=== PATIENT | female | born 1970 | race Caucasian/White ===

== ENCOUNTER 2017-01-14 17:40 | Emergency (ER) | payer MEDICARE ==
[2016-04-18 13:36] VITALS: BMI 40.0
[~2017-01-14 17:40] MED LIST: AMITRIPTYLINE100 MG PO; ATARAX 25 MG TA25 MG PO; CATAPRES0.1 MG PO; DIOVAN HCT 160/1 TA1 PO; FLAGYL500 MG PO; FOLIC ACID1 MG PO; HYDROCODONE-APA1 TAB PO; IBUPROFEN600 MG PO; LACTINEX C1 TAB.CHEW PO; LEVAQUIN500 MG PO; LIPITOR10 MG PO; METHOTREXATE2.5 MG PO; METOPROLOL TART50 MG PO; NEURONTIN 300300 MG PO; NORCO 10/325 TA1 TA1 PO; PERCOCET 5-3251 TAB PO; PLAVIX75 MG PO; PROAIR HFA8.5 GM INH; SYNTHROID50 MCG PO; XANAX1 MG PO; ZESTRIL20 MG PO; ZOFRAN4 MG PO
[2017-01-14 18:48] LABS: BASOPHILS 0.2 % (0.0-2.0); EOSINOPHILS 2.2 % (0-7); HEMATOCRIT 46.3 % (36.0-48.0); HEMOGLOBIN 15.2 g/dL (12-16); IMMATURE GRANULOCYTES 0.3 % (0-5); LYMPHOCYTES 32.4 % (15-50); MCH 28.2 pg (26.0-34.0); MCHC 32.8 g/dL (31.0-37.0); MCV 85.9 fL (80.0-100.0); MEAN PLATELET VOLUME 12.1 fL (7.4-10.4); MONOCYTES 6.9 % (2-11); PLATELET COUNT 207 10x3/uL (130-400); RBC 5.39 10x6/uL (4.00-5.40); RDW 14.8 % (11.5-14.5); WBC 9.2 10x3/uL (4.8-10.8)
[2017-01-14 18:56] LABS: APTT 26.8 SECONDS (22.8-39.4); INR 0.91 (0.85-1.17); PROTIME 12.1 SECONDS (11.6-15.0)
[2017-01-14 19:04] LABS: ALBUMIN 3.7 g/dL (3.4-5.0); ANION GAP 12.2 mmol/L (8-16); BILIRUBIN - TOTAL 0.23 mg/dL (0.2-1.3); CALCIUM 9.5 mg/dL (8.5-10.1); CARBON DIOXIDE 30.6 mmol/L (21.0-32.0); CREATININE - SERUM 0.9 mg/dL (0.6-1.3); POTASSIUM - SERUM 3.8 mmol/L (3.5-5.1)
[2017-01-14 19:59] LABS: APPEARANCE CLEAR (CLEAR); BILIRUBIN NEGATIVE (NEGATIVE); COLOR STRAW (YELLOW); GLUCOSE NEGATIVE (NEGATIVE); KETONE NEGATIVE (NEGATIVE); LEUKOCYTE ESTERASE TRACE (NEGATIVE); NITRITE NEGATIVE (NEGATIVE); PROTEIN NEGATIVE (NEGATIVE); RED CELLS - URINE OCC /hpf (0-5); SPECIFIC GRAVITY 1.015 (1.005-1.020); UROBILINOGEN NORMAL (NORMAL)
[2017-01-14 20:00] LABS: BACTERIA MODERATE /hpf (NONE SEEN); EPITHELIAL CELLS 0-5 /hpf (0-5)
[2017-01-14 20:01] LABS: UDS - AMPHET NEGATIVE QUAL (NEGATIVE); UDS - BARB NEGATIVE QUAL (NEGATIVE); UDS - BENZO POSITIVE QUAL (NEGATIVE); UDS - COCAINE NEGATIVE QUAL (NEGATIVE); UDS - METH NEGATIVE QUAL (NEGATIVE); UDS - OPIATE NEGATIVE QUAL (NEGATIVE); UDS - PCP NEGATIVE QUAL (NEGATIVE); UDS - THC NEGATIVE QUAL (NEGATIVE)
== END 2017-01-14 21:10 | disposition home or self-care (01) ==
LOC: D.ER 17:40
PROVIDERS: Emergency Medicine; Family Medicine
DX: N39.0 Urinary tract infection, site not specified (principal); J40 Bronchitis, not specified as acute or chronic; Z86.73 Personal history of transient ischemic attack (TIA), and cerebral infarction without residual deficits; I10 Essential (primary) hypertension; E87.6 Hypokalemia

== ENCOUNTER 2017-05-23 05:50 | Day surgery (SDC) | payer MEDICARE ==
[2017-05-22 13:55] LABS: HEMATOCRIT 41.6 % (36.0-48.0); HEMOGLOBIN 13.8 g/dL (12-16); MCH 27.7 pg (26.0-34.0); MCHC 33.2 g/dL (31.0-37.0); MCV 83.5 fL (80.0-100.0); MEAN PLATELET VOLUME 11.2 fL (7.4-10.4); RBC 4.98 10x6/uL (4.00-5.40); RDW 15.5 % (11.5-14.5); WBC 9.7 10x3/uL (4.8-10.8)
[~2017-05-23] VITALS: Ht 144.8 cm; Wt 93.9 kg
--- NOTE | ~2017-05-23 | OP ---
PATIENT NAME: HOLDEN NAVA MEDICAL RECORD: [id number] :74 LOCATION:D.[facility] ADMISSION DATE: SURGEON: DIYA GASCA MD OPERATION DATE: 05/23/17 DATE OF OPERATION: 05/23/2017 PREOPERATIVE DIAGNOSES: Large disc herniation L5-S1 right with right L5 and S1 radiculopathy. POSTOPERATIVE DIAGNOSES: Large disc herniation L5-S1 right with right L5 and S1 radiculopathy. PROCEDURES: Lumbar laminotomy, medial facetectomy and foraminotomy with discectomy L5-S1 right with METRx retractor. SURGEON: Diya Gasca MD. PLACE OF SERVICE: [facility]. INDICATIONS: Ms. Nava has 10/10 low back pain radiating to her right lower extremity and at L5 and S1 distributions, unresponsive to conservative treatment and unable to perform ADLs with complaint of weakness in her right lower extremity. Therefore, she was taken to the operating room. DESCRIPTION AND TECHNIQUE: After induction of general endotracheal anesthesia, the patient was rolled prone on a Mark frame. Lumbar spine was prepped and draped in usual sterile fashion. Fluoroscopic x-ray and spinal needle localized to L5-S1 interspace on the right side. A series of dilators was used to advance a METRx retractor to the L5-S1 interspace on the right side. The level was confirmed with fluoroscopic x-ray. A [employer] Joe drill and microscope were used to perform a laminotomy, medial facetectomy and foraminotomy at L5-S1 on the right. Hypertrophied ligamentum flavum was removed with Cloward rongeurs. There was an obvious disc herniation at L5-S1 within the axilla of the right S1 nerve root. This was removed with pituitary rongeurs. The spinal canal was ____ with a nerve hook noted no other fragments found. Meticulous hemostasis was maintained throughout the wound. Wound was irrigated with copious amounts of lukewarm saline irrigant solution. Additional disc material was removed from the disc space. Meticulous hemostasis was maintained throughout the wound. Wound was irrigated again with lukewarm saline irrigant solution. The fascia was closed with 2-0 Vicryl suture. The subdermal layer was closed with 3-0 Vicryl suture. The skin was closed with scott. A sterile dressing was applied to the wound. The patient was awakened in good condition and taken to recovery. All counts were reported as correct. Estimated blood loss was minimal. TRANSINT:[id number] Voice Confirmation ID: [id number] DOCUMENT ID: [id number] OPERATIVE REPORT [id number] HOLDEN NAVA JOHN MD CC: [id number] DICTATION DATE: 05/23/171908 MIXING ENGINEER: 05/25/17 0151 [facility] 05/23/17 [address] [place] [address]
[~2017-05-23 05:50] MED LIST changes: +DESERYL100 MG PO; +LEVOTHYROXINE50 MCG PO; +LYRICA75 MG PO; +PERCOCET 10/3251 TA1 PO; +PHENERGAN25 M1 PO
[2017-05-23 06:21] VITALS: BP 143/81; Ht 144.8 cm; Wt 93.9 kg
--- NOTE | 2017-05-23 15:07 | NUR ---
1405 DRESSED, AWAKE & ALERT. REQUESTS DISCAHRGE. RANKS PAIN 12/16. GIVEN DISCHARGE INFORMATION INCLUDING: RX: PERCOET 10/325MG, MED REC, [facility] OPS D/C INSTRUCTIONS, RTC APPT., LUMBAR SURGERY DISCAHRGE INSTRUCTIONS, & COMPUTER D/C INSTRUCTIONS FOR LAMINECTOMY. PT VOICED UNDERSTANDING. TO PRIVATE CAR PER WHEELCHAIR BY VOLUNTEER. HOME WITH , URI MATA. Aijt MAURO R.N.
== END 2017-05-23 14:05 | disposition home or self-care (01) ==
LOC: D.OPS 05:50 → D.PAN 07:30 → D.OPS 07:30
PROVIDERS: Anesthesiology
DX: M51.17 Intervertebral disc disorders with radiculopathy, lumbosacral region (principal); Z01.812 Encounter for preprocedural laboratory examination

== ENCOUNTER 2017-08-30 21:12 | Emergency (ER) | payer MEDICARE ==
[2017-05-23 06:21] VITALS: BMI 44.9
[2017-08-30 21:54] LABS: BASOPHILS 0.2 % (0-2); EOSINOPHILS 2.8 % (0-7); HEMATOCRIT 41.5 % (36.0-48.0); HEMOGLOBIN 13.4 g/dL (12-16); IMMATURE GRANULOCYTES 0.2 % (0-5); LYMPHOCYTES 28.9 % (15-50); MCH 28.4 pg (26.0-34.0); MCHC 32.3 g/dL (31.0-37.0); MCV 87.9 fL (80.0-100.0); MEAN PLATELET VOLUME 12.2 fL (7.4-10.4); MONOCYTES 10.2 % (2-11); NEUTROPHILS 57.7 % (40-80); PLATELET COUNT 200 10x3/uL (130-400); RBC 4.72 10x6/uL (4.00-5.40); WBC 8.7 10x3/uL (4.8-10.8)
[2017-08-30 22:14] LABS: ANION GAP 8.4 mmol/L (8-16); CALCIUM 8.7 mg/dL (8.5-10.1); CARBON DIOXIDE 31.2 mmol/L (21.0-32.0); CREATININE - SERUM 0.9 mg/dL (0.6-1.3); POTASSIUM - SERUM 3.6 mmol/L (3.5-5.1)
[2017-08-30 22:16] LABS: TROPONIN-I 0.064 ng/mL (0.000-0.060)
== END 2017-08-30 23:24 | disposition home or self-care (01) ==
LOC: D.ER 21:12
PROVIDERS: Emergency Medicine; Nurse Practitioner Acute Care
DX: J18.9 Pneumonia, unspecified organism (principal); F17.200 Nicotine dependence, unspecified, uncomplicated; Z86.73 Personal history of transient ischemic attack (TIA), and cerebral infarction without residual deficits

== ENCOUNTER 2017-10-01 21:03 | Emergency (ER) | payer MEDICARE ==
[2017-05-23 06:21] VITALS: BMI 44.9
[2017-10-01 21:47] LABS: APPEARANCE CLEAR (CLEAR); BILIRUBIN NEGATIVE (NEGATIVE); COLOR YELLOW (YELLOW); GLUCOSE NEGATIVE (NEGATIVE); KETONE NEGATIVE (NEGATIVE); NITRITE NEGATIVE (NEGATIVE); PROTEIN NEGATIVE (NEGATIVE); SPECIFIC GRAVITY 1.015 (1.005-1.020); UROBILINOGEN NORMAL (NORMAL)
[2017-10-01 21:56] LABS: BASOPHILS 0.3 % (0-2); HEMATOCRIT 41.3 % (36.0-48.0); HEMOGLOBIN 13.4 g/dL (12-16); IMMATURE GRANULOCYTES 0.3 % (0-5); MCH 27.9 pg (26.0-34.0); MCHC 32.4 g/dL (31.0-37.0); MCV 85.9 fL (80.0-100.0); MEAN PLATELET VOLUME 12.2 fL (7.4-10.4); NEUTROPHILS 63.4 % (40-80); PLATELET COUNT 193 10x3/uL (130-400); RBC 4.81 10x6/uL (4.00-5.40); RDW 13.7 % (11.5-14.5)
[2017-10-01 22:12] LABS: UDS - AMPHET NEGATIVE QUAL (NEGATIVE); UDS - BARB NEGATIVE QUAL (NEGATIVE); UDS - BENZO POSITIVE QUAL (NEGATIVE); UDS - COCAINE NEGATIVE QUAL (NEGATIVE); UDS - OPIATE NEGATIVE QUAL (NEGATIVE); UDS - PCP NEGATIVE QUAL (NEGATIVE); UDS - THC NEGATIVE QUAL (NEGATIVE)
[2017-10-01 22:13] LABS: ANION GAP 15.1 mmol/L (8-16); BILIRUBIN - TOTAL 0.06 mg/dL (0.2-1.3); CALCIUM 8.9 mg/dL (8.5-10.1); CARBON DIOXIDE 27.5 mmol/L (21.0-32.0); POTASSIUM - SERUM 3.6 mmol/L (3.5-5.1)
== END 2017-10-02 00:40 | disposition home or self-care (01) ==
LOC: D.ER 21:03
PROVIDERS: Family Medicine
DX: R10.12 Left upper quadrant pain (principal); I10 Essential (primary) hypertension; Z86.73 Personal history of transient ischemic attack (TIA), and cerebral infarction without residual deficits

== ENCOUNTER 2018-01-09 10:31 | Emergency (ER) | payer MEDICARE ==
[2017-05-23 06:21] VITALS: BMI 44.9
== END 2018-01-09 13:23 | disposition home or self-care (01) ==
LOC: D.ER 10:31
DX: R13.10 Dysphagia, unspecified (principal); I10 Essential (primary) hypertension; F17.200 Nicotine dependence, unspecified, uncomplicated

== ENCOUNTER 2018-01-24 11:32 | Emergency (ER) | payer MEDICARE ==
[2017-05-23 06:21] VITALS: BMI 44.9
[2018-01-24 17:04] LABS: BASOPHILS 0.2 % (0-2); EOSINOPHILS 2.5 % (0-7); HEMATOCRIT 42.2 % (36.0-48.0); HEMOGLOBIN 13.8 g/dL (12-16); IMMATURE GRANULOCYTES 0.1 % (0-5); LYMPHOCYTES 34.3 % (15-50); MCH 27.7 pg (26.0-34.0); MCHC 32.7 g/dL (31.0-37.0); MCV 84.6 fL (80.0-100.0); MEAN PLATELET VOLUME 11.8 fL (7.4-10.4); MONOCYTES 5.9 % (2-11); PLATELET COUNT 204 10x3/uL (130-400); RBC 4.99 10x6/uL (4.00-5.40); RDW 15.9 % (11.5-14.5); WBC 9.2 10x3/uL (4.8-10.8)
[2018-01-24 17:20] LABS: ALBUMIN 3.3 g/dL (3.4-5.0); ALKALINE PHOSPHATASE 106 U/L (46-116); ALT (SGPT) 24 U/L (10-68); BILIRUBIN - TOTAL 0.31 mg/dL (0.2-1.3); CALC OSMOLALITY 283 mosm/kg (275-300); CALCIUM 8.7 mg/dL (8.5-10.1); CARBON DIOXIDE 26.4 mmol/L (21.0-32.0); CHLORIDE - SERUM 106 mmol/L (98-107); CREATININE - SERUM 0.8 mg/dL (0.6-1.3); POTASSIUM - SERUM 3.6 mmol/L (3.5-5.1); PROTEIN - SERUM 7.2 g/dL (6.4-8.2); SODIUM 142 mmol/L (136-145); UREA NITROGEN 14 mg/dL (7-18); eGFR NON AFRICAN AMERICAN 82 mL/min (90-120)
[2018-01-24 17:21] LABS: GLUCOSE 92 mg/dL (74-106)
[2018-01-24 18:35] LABS: APPEARANCE CLEAR (CLEAR); COLOR YELLOW (YELLOW)
[2018-01-24 18:36] LABS: BILIRUBIN NEGATIVE (NEGATIVE); GLUCOSE NEGATIVE (NEGATIVE); KETONE SMALL mg/dL (NEGATIVE); NITRITE NEGATIVE (NEGATIVE); PROTEIN NEGATIVE (NEGATIVE); UROBILINOGEN NORMAL (NORMAL)
== END 2018-01-24 19:30 | disposition home or self-care (01) ==
LOC: D.ER 11:32
PROVIDERS: Physician Assistant Medical
DX: I88.9 Nonspecific lymphadenitis, unspecified (principal); I10 Essential (primary) hypertension; F17.200 Nicotine dependence, unspecified, uncomplicated

== ENCOUNTER 2018-03-26 15:48 | Emergency (ER) | payer MEDICARE ==
[2017-05-23 06:21] VITALS: BMI 44.9
== END 2018-03-26 18:10 | disposition home or self-care (01) ==
LOC: D.ER 15:48
DX: S80.02XA Contusion of left knee, initial encounter (principal); S80.01XA Contusion of right knee, initial encounter; W19.XXXA Unspecified fall, initial encounter; Y93.89 Activity, other specified; Y92.481 Parking lot as the place of occurrence of the external cause; M79.631 Pain in right forearm; M25.531 Pain in right wrist; I10 Essential (primary) hypertension

== ENCOUNTER → 2018-06-08 09:28 | Outpatient (CLI) | payer MEDICARE ==
[2017-05-23 06:21] VITALS: BMI 44.9
[~2018-06-08 09:28] MED LIST changes: +NORVASC5 MG PO; +PROTONIX40 MG PO
== END | disposition home or self-care (01) ==
LOC: D.CT 06-06 13:00
DX: R10.84 Generalized abdominal pain (principal)

== ENCOUNTER 2018-06-11 21:40 | Emergency (ER) | payer MEDICARE, MEDICAID ==
[~2018-06-11] VITALS: Ht 144.8 cm; Wt 84.4 kg
[~2018-06-11 21:40] MED LIST changes: -NORVASC5 MG PO; -PROTONIX40 MG PO
[2018-06-11 22:05] VITALS: Ht 144.8 cm; Wt 84.4 kg
[2018-06-11 22:40] LABS: BASOPHILS 0.2 % (0-2); HEMATOCRIT 43.9 % (36.0-48.0); HEMOGLOBIN 14.8 g/dL (12-16); IMMATURE GRANULOCYTES 0.2 % (0-5); LYMPHOCYTES 38.7 % (15-50); MCHC 33.7 g/dL (31.0-37.0); MEAN PLATELET VOLUME 11.5 fL (7.4-10.4); MONOCYTES 7.7 % (2-11); NEUTROPHILS 51.2 % (40-80); PLATELET COUNT 217 10x3/uL (130-400); RBC 5.29 10x6/uL (4.00-5.40); RDW 14.5 % (11.5-14.5); WBC 10.8 10x3/uL (4.8-10.8)
[2018-06-11 22:49] LABS: APPEARANCE CLEAR (CLEAR); BILIRUBIN NEGATIVE (NEGATIVE); COLOR YELLOW (YELLOW); GLUCOSE NEGATIVE (NEGATIVE); KETONE NEGATIVE (NEGATIVE); NITRITE NEGATIVE (NEGATIVE); PROTEIN NEGATIVE (NEGATIVE); UROBILINOGEN NORMAL (NORMAL)
[2018-06-11 23:09] LABS: ALBUMIN 3.4 g/dL (3.4-5.0); ANION GAP 12.2 mmol/L (8-16); BILIRUBIN - TOTAL 0.09 mg/dL (0.2-1.3); CARBON DIOXIDE 29.5 mmol/L (21.0-32.0); POTASSIUM - SERUM 3.7 mmol/L (3.5-5.1); PROTEIN - SERUM 7.6 g/dL (6.4-8.2)
[2018-06-12 00:08] LABS: UDS - AMPHET NEGATIVE QUAL (NEGATIVE); UDS - BARB NEGATIVE QUAL (NEGATIVE); UDS - BENZO NEGATIVE QUAL (NEGATIVE); UDS - COCAINE NEGATIVE QUAL (NEGATIVE); UDS - OPIATE NEGATIVE QUAL (NEGATIVE); UDS - PCP NEGATIVE QUAL (NEGATIVE); UDS - THC NEGATIVE QUAL (NEGATIVE)
[2018-06-12] MEDS ORDERED: PROTONIX40 MG PO (01:29)
[2018-06-12] MEDS ORDERED: NORVASC5 MG PO (01:29)
[2018-06-12 01:56] VITALS: BP 167/89
== END 2018-06-12 01:53 | disposition home or self-care (01) ==
LOC: D.ER 21:40
PROVIDERS: Family Medicine
DX: I10 Essential (primary) hypertension (principal); R10.9 Unspecified abdominal pain; K20.9 Esophagitis, unspecified; R11.2 Nausea with vomiting, unspecified; Z86.73 Personal history of transient ischemic attack (TIA), and cerebral infarction without residual deficits; F17.200 Nicotine dependence, unspecified, uncomplicated

== ENCOUNTER → 2018-11-28 | Emergency (ER) | payer MEDICARE, MEDICAID ==
[~2018-11-28] VITALS: Ht 144.8 cm; Wt 90.9 kg
[~2018-11-28] MED LIST changes: +AUGMENTIN 875-11 TAB PO; +FLORASTOR250 MG PO; +NORVASC5 MG PO; +PROTONIX40 MG PO
[2018-11-28 23:31] VITALS: Ht 144.8 cm; Wt 90.9 kg
[2018-11-29 00:02] LABS: BASOPHILS 0.4 % (0-2); EOSINOPHILS 2.3 % (0-7); HEMATOCRIT 42.2 % (36.0-48.0); IMMATURE GRANULOCYTES 0.8 % (0-5); LYMPHOCYTES 30.6 % (15-50); MCH 28.1 pg (26.0-34.0); MCHC 33.2 g/dL (31.0-37.0); MCV 84.7 fL (80.0-100.0); MEAN PLATELET VOLUME 11.3 fL (7.4-10.4); MONOCYTES 6.5 % (2-11); NEUTROPHILS 59.4 % (40-80); PLATELET COUNT 238 10x3/uL (130-400); RBC 4.98 10x6/uL (4.00-5.40); RDW 14.7 % (11.5-14.5); WBC 11.9 10x3/uL (4.8-10.8)
[2018-11-29 00:03] LABS: ANION GAP 12.9 mmol/L (8-16); BILIRUBIN - TOTAL 0.11 mg/dL (0.2-1.3); CALCIUM 8.6 mg/dL (8.5-10.1); CARBON DIOXIDE 30.5 mmol/L (21.0-32.0); POTASSIUM - SERUM 3.4 mmol/L (3.5-5.1); PROTEIN - SERUM 7.6 g/dL (6.4-8.2)
[2018-11-29 01:20] VITALS: BP 142/75
== END | disposition home or self-care (01) ==
LOC: D.ER 23:20
PROVIDERS: Family Medicine
DX: S61.452A Open bite of left hand, initial encounter (principal); Y04.1XXA Assault by human bite, initial encounter; Y93.89 Activity, other specified; Y92.019 Unspecified place in single-family (private) house as the place of occurrence of the external cause; Z86.73 Personal history of transient ischemic attack (TIA), and cerebral infarction without residual deficits; I10 Essential (primary) hypertension; F17.200 Nicotine dependence, unspecified, uncomplicated

== ENCOUNTER 2019-01-09 01:39 | Emergency (ER) | payer MEDICARE, MEDICAID ==
[~2019-01-09] VITALS: Ht 144.8 cm; Wt 122.5 kg
[2019-01-09 01:54] VITALS: Ht 144.8 cm; Wt 122.5 kg
[2019-01-09] MEDS ORDERED: LEVOTHYROXINE50 MCG PO (01:56)
[2019-01-09 02:41] LABS: BASOPHILS 0.2 % (0-2); HEMATOCRIT 41.9 % (36.0-48.0); HEMOGLOBIN 13.7 g/dL (12-16); IMMATURE GRANULOCYTES 0.2 % (0-5); LYMPHOCYTES 33.1 % (15-50); MCH 27.6 pg (26.0-34.0); MCHC 32.7 g/dL (31.0-37.0); MCV 84.5 fL (80.0-100.0); MEAN PLATELET VOLUME 11.7 fL (7.4-10.4); MONOCYTES 7.7 % (2-11); NEUTROPHILS 56.8 % (40-80); PLATELET COUNT 244 10x3/uL (130-400); RBC 4.96 10x6/uL (4.00-5.40); RDW 15.1 % (11.5-14.5); WBC 9.6 10x3/uL (4.8-10.8)
[2019-01-09 02:57] LABS: ALBUMIN 3.2 g/dL (3.4-5.0); BILIRUBIN - TOTAL 0.11 mg/dL (0.2-1.3); CALCIUM 8.4 mg/dL (8.5-10.1); CARBON DIOXIDE 25.5 mmol/L (21.0-32.0); POTASSIUM - SERUM 3.5 mmol/L (3.5-5.1); PROTEIN - SERUM 7.4 g/dL (6.4-8.2)
[2019-01-09] MEDS ORDERED: DICLOFENAC SODI50 MG PO (03:04)
[2019-01-09 03:14] LABS: C-REACTIVE PROTEIN 1.9 mg/dL (0.0-0.9)
[2019-01-09 03:15] LABS: TROPONIN-I 0.077 ng/mL (0.000-0.060)
[2019-01-09 03:38] VITALS: BP 205/112
[2019-01-10] MEDS ORDERED: ASPIRIN325 MG PO (14:32)
[2019-01-10] MEDS ORDERED: NORVASC5 MG PO (14:34)
[2019-01-10] MEDS ORDERED: ISOSORBIDE MONO30 M1 PO (14:46)
== END 2019-01-09 03:41 | disposition left against medical advice (07) ==
LOC: D.ER 01:39
PROVIDERS: Family Medicine
DX: M79.89 Other specified soft tissue disorders (principal); I10 Essential (primary) hypertension; R94.8 Abnormal results of function studies of other organs and systems; I69.359 Hemiplegia and hemiparesis following cerebral infarction affecting unspecified side; J45.909 Unspecified asthma, uncomplicated; F41.8 Other specified anxiety disorders

== ENCOUNTER 2019-01-09 12:47 | Outpatient (CLI) | payer MEDICARE, MEDICAID ==
[~2019-01-09] VITALS: Ht 144.8 cm; Wt 91.8 kg
--- NOTE | ~2019-01-09 | HEMODYNAMI ---
PATIENT:HOLDEN MATA MEDICAL RECORD: [id number] : 74 LOCATION:[facility] D.2118 ADMISSION DATE: 01/09/19 Generatedon:01/10/201912:39 Patient name: HOLDEN MATA Patient #: [id number] SSN: : 1970 Date of study: 01/10/2019 Page: Of Hemodynamic Procedure Report Patient Data Patient Demographics Procedure consent was obtained First Name: HOLDEN Gender: Female Last Name: ESPERANZA : 1970 Middle Initial: A Age: 48 year(s) Patient #: [id number] Race: Unknown Additional ID: [id number] Contact details Address: [address] [place] [address] ROAD State: [place] City: [place] Zip code: [address] Past Medical History Allergies Allergen Reaction Date Comments Reported Other allergy 01/10/2019 keflex, haldol, stadol Sulfa drugs 01/10/2019 Admission Admission Data Admission Date: 01/09/2019 Admission Time: 16:06 Room #: D.2118 Procedure Procedure Types Cath Procedure Diagnostic Procedure [facility] w/Coronaries Sedation Charges Moderate Sedation up to 15 minutes Procedure Description Procedure Date Procedure Date: 01/10/2019 Procedure Start Time: 12:23 Procedure End Time: 12:39 Procedure Staff Name Function Fareed Lopez MD Performing Physician Sonam Fuentes RT Monitor Ector Silver RN Nurse Colette Cummings RT Scrub Procedure Data Cath Procedure Fluoroscopy Diagnostic fluoroscopy Total fluoroscopy Time: 1.3 time: 1.3 min min Diagnostic fluoroscopy Total fluoroscopy dose: 527 dose: 527 mGy mGy Contrast Material Contrast Material Type Amount (ml) Isovue 300 42 Entry Location Entry Primary Successful Side Size Upsize Upsize Entry Closure Succes sful Closure Location (Fr) 1 (Fr) 2 (Fr) Remarks Device Remarks Femoral Right 5 Fr Exoseal artery Estimated blood loss: 5 ml Diagnostic catheters Device Type Used For End Catheter Placement MULTIPACK JL 4.0 5Fr Left Coronary catheter Angiography MULTIPACK 3DRC 5Fr Right Coronary catheter Angiography MULTIPACK Pigtail 5 Fr LV Angiography catheter Procedure Complications No complications Procedure Medications Medication Administration Route Dosage Oxygen etCO2 Nasal cannula 2 l/min Heparin Flush Bag added to field 2 bags (1000units/500ml NS) 0.9% NaCl I.V. 100 ml/hr Lidocaine 2% added to field 20 Fentanyl I.V. 50 mcg Versed I.V. 1 mg Fentanyl I.V. 50 mcg Versed I.V. 1 mg Hemodynamics Rest Heart Rate: 96 (bpm) Pressure Samples Time Site Value (mmHg) Purpose Heart Use Rate(bpm) 12:33 LV 169/10,28 EDP 99 12:34 AO 163/100(124) Pullback 100 12:34 LV 204/4,21 Pullback 100 Gradients Valve Time Site 1 Site 2 Mean SEP/DFP Peak To Heart Use (mmHg) (sec/min) Peak Rate (mmHg) (bpm) Aortic 12:34 LV AO 34 26 41 100 204/4,21 163/100(124) Calculations Valve P-P Mean Valve Index Valve Source Name Gradient Area Flow (cm2) Aortic 41 34 41 34 Snapshots Pre Cath Intra NCS Post Cath Vital Signs Time Heart Resp SPO2 etCO2 NIBP (mmHg) Rhythm Pain Sedation Rate (ipm) (%) (mmHg) Status Level (bpm) 12:15:38 91 18 95 51.2 168/114(150) NSR 0 (11) 10(A) , No pain 12:19:56 87 17 98 44.5 170/104(148) NSR 0 (11) 10(A) , No pain 12:24:10 94 16 94 38.4 164/128(153) NSR 0 (11) 9(A) , No pain 12:28:27 98 17 91 40.7 155/117(152) NSR 0 (11) 9(A) , No pain 12:32:44 99 16 93 40.7 159/128(152) NSR 0 (11) 9(A) , No pain 12:38:03 101 17 94 45.9 158/113(154) NSR 0 (11) 9(A) , No pain Medications Time Medication Route Dose Verified Delivered Reason Notes Effe ctiveness by by 12:16:13 Oxygen etCO2 2 Fareed Ector Per Nasal l/min John Silver RN physician cannula 12:16:20 Heparin Flush added 2 Fareed Ector used for Bag to bags John Silver RN procedure (1000units/500ml field NS) 12:16:28 0.9% NaCl I.V. 100 Fareed Ector Per ml/hr John Silver RN physician 12:16:38 Lidocaine 2% added 20ml Fareed Ector used for to vial John Silver RN procedure field 12:20:31 Fentanyl I.V. 50 Fareed Ector for mcg John Silver RN sedation 12:20:38 Versed I.V. 1 mg Fareed Ector for John Silver RN sedation 12:27:58 Fentanyl I.V. 50 Fareed Ector for mcg John Silver RN sedation 12:28:02 Versed I.V. 1 mg Fareed Ector for John Silver RN sedation Procedure Log Time Note 11:52:34 Time tracking: Regular hours (M-F 7:00 - 5:00) 11:52:39 Plan of Care:Hemodynamics will remain stable., Cardiac rhythm will remain stable., Comfort level will be maintained., Respiratory function will remain adequate., Patient/ family verbilizes understanding of procedure., Procedure tolerated without complication., Recovers from procedure without complications.. 11:54:25 Ector Silver RN sent for patient. Start room use. 12:07:05 Patient received from PCU to [facility] 2 Alert and oriented. Tansferred to table in Supine position. 12:07:06 Warm blankets applied, and esa hugger turned on for patient comfort. 12:07:07 Correct patient and procedure confirmed by team. 12:07:08 Signed procedure consent form obtained from patient. 12:07:09 ECG and BP/O2 sat monitors applied to patient. 12:07:09 Full Disclosure recording started 12:14:27 Vital chart was started 12:16:13 Oxygen 2 l/min etCO2 Nasal cannula was administered by Ector Silver RN; Per physician; 12:16:20 Heparin Flush Bag (1000units/500ml NS) 2 bags added to field was administered by Ector Silver RN; used for procedure; 12:16:28 0.9% NaCl 100 ml/hr I.V. was administered by Ector Silver RN; Per physician; 12:16:38 Lidocaine 2% 20ml vial added to field was administered by Ector Silver RN; used for procedure; 12:16:40 Rhythm: sinus rhythm 12:16:59 H&P Date Dictated: 01/09/2019 Within 30 days and on chart.. 12:17:00 Pre-procedure instructions explained to patient. 12:17:00 Pre-op teaching completed and patient verbalized understanding. 12:17:02 Family in waiting room. 12:17:03 Patient NPO since Midnight. 12:18:55 Patient allergic to Other allergykeflex, haldol, stadol 12:19:00 Patient allergic to Sulfa drugs 12:19:04 Is the patient allergic to Iodine/contrast media? No. 12:19:06 Is patient on blood thinner?No 12:19:08 Patient diabetic? No. 12:19:12 Previous problem with sedation/anesthesia? No ? 12:19:12 Snore? Yes 12:19:13 Sleep apnea? Yes 12:19:14 Deviated septum? No 12:19:15 Opens mouth fully? Yes 12:19:16 Sticks out tongue? Yes 12:19:19 Airway obstruction? Yes copd 12:19:21 Dentures? No ? 12:19:24 Pre procedure: right dorsailis pedis pulse 2+ Normal; easily identifiable; not easily obliterated 12:19:26 Patient pain scale 0/10 ?. 12:19:32 IV patent on arrival in left forearm with 0.9% NaCl at [facility]. 12:19:33 Lab results completed and on chart. 12:19:37 Right groin area was prepped with chlora-prep and draped in sterile fashion 12:19:38 Alarms reviewed by R. N. 12:19:38 Sharps counted by scrub and verified by R.N. 12:19:44 Use device set Femoral Dx 12:19:45 ACIST Syringe (18743) opened to sterile field. 12:19:45 Bag Decanter (2002) opened to sterile field. 12:19:46 Medline Cath Pack ([id number]) opened to sterile field. 12:19:46 DIAGNOSTIC WIRE .035 260cm J wire (216123) opened to sterile field. 12:19:48 ACIST Hand Control (94314) opened to sterile field. 12:19:48 ACIST Manifold (57713) opened to sterile field. 12:19:49 DIAGNOSTIC Multipack 5Fr catheter set (ZR5054) opened to sterile field. 12:19:49 Tegaderm 4 x 4 (1626W) opened to sterile field. 12:19:51 SHEATH 5FR [place] (PRK781) opened to sterile field. 12:20:04 Final Timeout: patient, procedure, and site verified with staff and physician. All members of the team are in agreement. 12:20:06 Right groin site verified by team. 12:20:09 Maximum allowable Isovue 300 dose 300ml. Physician notified. (300ml for normal creatinines. For patients with creatinine of 1.7 or higher multiply weight(kg) x 5 divided by creatinine.) 12:20:13 Fire Safety Assessment: A--An alcohol-based skin anteseptic being used preoperatively., C--Open oxygen or nitrous oxide is being used., D--An ESU, laser, or fiber-optic light is being used. 12:20:16 Physical assessment completed. ASA score P 2 - A patient with mild systemic disease as per Fareed Lopez MD. 12:20:19 Sedation plan: IV Moderate Sedation Medication:Versed, Fentanyl 12:20:31 Fentanyl 50 mcg I.V. was administered by Ector Silver RN; for sedation; 12:20:38 Versed 1 mg I.V. was administered by Ector Silver RN; for sedation; 12:23:54 Procedure started. 12:23:57 Local anesthetic to right femoral artery with Lidocaine 2% by Fareed Lopez MD.INITIAL ACCESS ONLY 12:24:58 Baseline sample Acquired. 12:25:52 Zero performed for pressure channel P1 12:27:13 A 5 Fr sheath was inserted into the Right Femoral artery 12:27:42 A MULTIPACK JL 4.0 5Fr catheter was advanced over the wire and used for Left Coronary Angiography. 12::58 Fentanyl 50 mcg I.V. was administered by Ector Silver RN; for sedation; 12:28:02 Versed 1 mg I.V. was administered by Ector Silver RN; for sedation; 12:30:51 Catheter removed. 12:32:15 A MULTIPACK 3DRC 5Fr catheter was advanced over the wire and used for Right Coronary Angiography. 12:32:17 Catheter removed. 12:32:27 A MULTIPACK Pigtail 5 Fr catheter was advanced over the wire and used for LV Angiography. 12:32:39 EXOSEAL 5Fr (EX500) opened to sterile field. 12:33:51 LV gram done using ORR 12:33:52 LV hemodynamics recorded. 12:33:55 Injector settings: Ml/sec: 10, Volume: 20, 12:34:00 EF : 60 % 12:34:45 Catheter removed. 12:35:02 Sheath removed intact; hemostasis achieved with Exoseal to the Right Femoral artery. 12:35:04 Procedure ended.(Physican Out) 12:35:14 Fluoroscopy time 01.30 minutes. 12:35:18 Flurop Dose total: 527 12:35:18 Fluoroscopy dose: 527 mGy 12:35:20 Contrast amount:Isovue 300 42ml. 12:35:21 Sharps counted by scrub and verified by R.N. 12:35:23 Insertion/operative site no bleeding no hematoma. 12:35:26 Post-op/insertion site Right Femoral artery dressed using a 4 x 4 and Tegaderm. 12:35:29 Post right femoral artery:stable, clean and dry 12:35:30 Post Procedure Pulses reassessed and unchanged 12:35:32 Post-procedure physical assessment completed. ASA score P 2 - A patient with mild systemic disease as per Fareed Lopez MD. 12:35:34 Post procedure rhythm: unchanged. 12:35:38 Estimated blood loss: 5 ml 12:35:39 Post procedure instruction explained to patient.Patient verbalizes understanding. 12:35:39 Patient needs reinforcement of post procedure teaching. 12:35:47 Procedure Complication : No complications 12:35:49 See physician's report for complete and final results. 12:37:05 Procedure type changed to Cath procedure, Diagnostic procedure, LHC, LHC w/Coronaries, Sedation Charges, Moderate Sedation up to 15 minutes 12:38:18 Procedure and supply charges have been captured, reviewed, submitted and are correct. 12:38:52 Vital chart was stopped 12:38:58 Report given to PCU. 12:39:01 Patient transfered to PCU with Bed. 12:39:12 Procedure ended. 12:39:12 Full Disclosure recording stopped 12:39:16 End room use (Document Last) Device Usage Item Name Manufacture Quantity Catalog Hospital Part Current Minimal L ot# / Number Charge Number Stock Stock Serial# Code ACIST Acist 1 12714 971556 464733 172990 20 Syringe Medical (71190) Systems Inc Bag Microtek 1 2001S 092265 12695 523341 5 Decanter [employer] Inc. () Medline Medline 1 [id number] 903192 96465 808359 5 Cath Pack ([id number]) DIAGNOSTIC St Soto 1 096536 337412 843697 879874 30 WIRE .035 260cm J wire (373321) ACIST Hand Acist 1 89502 335588 684949 824903 5 Control Medical (70190) Systems Inc ACIST Acist 1 91429 895716 077645 749455 5 Manifold Medical (83442) Systems Inc DIAGNOSTIC Cardinal 1 HT0833 197945 68841 851887 30 Multipack Health 5Fr catheter set (XA0796) Tegaderm 4 3M 1 1626W 080718 253415 692093 5 x 4 (1626W) SHEATH 5FR Terumo 1 WIF490 856719 133306 894572 5 [place] (AYP093) MULTIPACK Cardinal 1 396177 5 JL 4.0 5Fr Health catheter MULTIPACK Cardinal 1 009410 5 3DRC 5Fr Health catheter MULTIPACK Cardinal 1 655700 5 Pigtail 5 Health Fr catheter EXOSEAL 5Fr Cardinal 1 EX500 849571 735165 969910 10 (EX500) Health Signature Audit [place] Stage Time Signature Unsigned Intra-Procedure 01/10/2019 Sonam 12:39:28 PM Counts RT(R) Signatures Monitor : Sonam Signature : Counts RT Date : Time : [address] [place] [address]
[~2019-01-09 12:47] MED LIST changes: +DICLOFENAC SODI50 MG PO
--- NOTE | 2019-01-09 13:11 | NUR ---
THIS NURSE PRESENT WITH RN STUDENT WHO ATTEMPTED IV START X1 THAT WAS UNSUCCESSFUL. THIS NURSE THEN ATTEMPTED TO START IV, UNSUCCESSFUL X2. PT REQUESTED THAT NURSE INSERT IV IN HER AC, WHICH THIS NURSE ATTEMPTED TO DO SO. AFTER THIS NURSE EXITED THE ROOM, PT STATED TO EDP DR. ASENCIO THAT SHE "WANTED A DIFERENT NURSE." CHARGE NURSE NOTIFIED OF THE ABOVE. HAND-OFF REPORT GIVEN TO KAT BOWMAN.
--- NOTE | 2019-01-09 13:12 | NUR ---
UPON ARRIVAL, THIS NURSE ASSISTED PT WITH REMOVING HER PANTS, PER PT REQUEST SO THAT EDP COULD ASSESS PT'S LEFT KNEE D/T C/O PAIN. PT REFUSED TO PUT ON PT GOWN. FOLLOWING FAILED IV ATTEMPTS, PT REQUESTING GOWN TO WEAR "SO THAT HER NEW SHIRT DOESN'T GET MESSED UP." HOSPITAL GOWN WAS PROVIDED TO PT REQUESTED.
[2019-01-09 14:22] LABS: CKMB 0.8 U/L (0.0-3.6); CREATINE KINASE 112 UL (21-215)
--- NOTE | 2019-01-09 16:49 | NUR ---
TRANSFER FROM ER BY W/C. NATEINTED TO ROOM. CALL LIGHT IN REACH. WILL CONT. PLAN OF CARE.
[2019-01-09 17:03] VITALS: Ht 144.8 cm; Wt 91.8 kg
[2019-01-09 17:10] LABS: CKMB 0.5 U/L (0.0-3.6); CREATINE KINASE 108 UL (21-215)
[2019-01-09 17:11] LABS: TROPONIN-I 0.089 ng/mL (0.000-0.060)
--- NOTE | 2019-01-09 18:30 | NUR ---
AMBULATING HALLWAY. DOES NOT WANT SCDS.
--- NOTE | 2019-01-09 19:17 | NUR ---
RESUMED CARE OF PT, LYING IN BED RESPIRATIONS EVEN AND UNLABORED ON ROOM AIR. 97 SR ON TELEMETRY. LEFT WRIST SALINE LOCKED. CALL LIGHT IN REACH. SEE NURSE ASSESSMENT. NO NEEDES VOICED AT THIS TIME.
[2019-01-09 20:00] VITALS: BP 154/83
[2019-01-09 22:11] LABS: CKMB 0.9 U/L (0.0-3.6); CREATINE KINASE 132 UL (21-215)
[2019-01-10] VITALS: BP 151/72
[2019-01-10 04:24] LABS: BASOPHILS 0.2 % (0-2); EOSINOPHILS 2.9 % (0-7); HEMATOCRIT 40.8 % (36.0-48.0); IMMATURE GRANULOCYTES 0.3 % (0-5); LYMPHOCYTES 41.9 % (15-50); MCH 27.5 pg (26.0-34.0); MCHC 31.9 g/dL (31.0-37.0); MCV 86.4 fL (80.0-100.0); MEAN PLATELET VOLUME 11.5 fL (7.4-10.4); NEUTROPHILS 46.7 % (40-80); PLATELET COUNT 224 10x3/uL (130-400); RBC 4.72 10x6/uL (4.00-5.40); RDW 15.5 % (11.5-14.5)
[2019-01-10 04:30] VITALS: BP 165/104
[2019-01-10 04:38] LABS: WBC 6.6 10x3/uL (4.8-10.8)
[2019-01-10 04:54] LABS: CALC OSMOLALITY 289 mosm/kg (275-300); CALCIUM 8.2 mg/dL (8.5-10.1); CHLORIDE - SERUM 107 mmol/L (98-107); CKMB 0.7 U/L (0.0-3.6); CREATINE KINASE 92 UL (21-215); CREATININE - SERUM 1.1 mg/dL (0.6-1.3); GLUCOSE 103 mg/dL (74-106); MAGNESIUM - SERUM 1.9 mg/dL (1.8-2.4); SODIUM 145 mmol/L (136-145); UREA NITROGEN 16 mg/dL (7-18); eGFR NON AFRICAN AMERICAN 57 mL/min (90-120)
[2019-01-10 04:55] LABS: CARBON DIOXIDE 31.9 mmol/L (21.0-32.0); POTASSIUM - SERUM 4.2 mmol/L (3.5-5.1); TROPONIN-I 0.079 ng/mL (0.000-0.060)
[2019-01-10 08:03] VITALS: BP 146/88
--- NOTE | 2019-01-10 10:44 | NUR ---
TELEMETRY SR. AMBULATING HALLWAY. WILL CONT. PLAN OF CARE.
[2019-01-10 11:53] VITALS: BP 140/81
--- NOTE | 2019-01-10 11:58 | NUR ---
PRE-OPS GIVEN. TO MARKET RESEARCH WORKER BY BED.
--- NOTE | 2019-01-10 13:05 | NUR ---
BACK FROM DRUM SANDER OFFBEARER. VS WNL. RIGHT GROIN STABLE WITHOUT BLEEDING OR HEMATOMA NOTED. WILL MONITOR.
[2019-01-10] MEDS ORDERED: ASPIRIN325 MG PO (14:32)
[2019-01-10] MEDS ORDERED: NORVASC5 MG PO (14:34)
[2019-01-10] MEDS ORDERED: ISOSORBIDE MONO30 M1 PO (14:46)
--- NOTE | 2019-01-10 14:48 | NUR ---
BED REST UP. GROIN STABLE.
--- NOTE | 2019-01-10 14:53 | MORECARE ---
CASE MANAGEMENT DISCHARGE SUMMARY PATIENT: HOLDEN MATA UNIT: [id number] ADM DATE: 01/09/19 AGE: 48 : 74 SEX: F ROOM/BED: D.5378 AUTHOR: BRETT OLVERA PHYSICIAN: REFERRING PHYSICIAN: CASSANDRA DARLING MD DATE OF SERVICE: 01/10/19 Discharge Plan Patient Name: HOLDEN MATA [facility] [facility] 1970 Planned Disposition: Anticipated Discharge Date: Discharge Date: Expected LOS: Initial Reviewer: [email or web address] Initial Review Date: 01/09/2019 Generated: 01/10/19 3:52 pm Coverage Notice Reviewer: [id number] - Ann Marie Stein Notice Issued Date-Time: 01/10/2019 14:16 Notice Type: Medicare Outpatient Observation Notice Notice Delivered To: Patient Relationship to Patient: Self Hydramatic Specialist Name: Delivery Method: HAND - Hand Delivered Melva Days: Prior Verbal Notification: Recipient Understood Notice: Yes Recipient Signature: Yes Med Rec Note Co-signed by Attending: Coverage Notice Comment: Patient Name: HOLDEN AMTA Page [phone] at 1453 All edits/amendments must be made on the electronic document DICTATION DATE: 01/10/19 145 INSTRUMENTATION MANAGER: RAFA 01/10/191451 RPT#: [id number] DC DATE: STATUS: ADM IN [facility] [address] [place] [address] END OF REPORT
--- NOTE | 2019-01-10 16:16 | NUR ---
IV AND TELEMETRY DCD. DC PLANS GIVEN. UNDERSTANDING VOICED. ESCORTED TO CAR BY W/C.
--- NOTE | 2019-01-11 09:29 | MORECARE ---
CASE MANAGEMENT DISCHARGE SUMMARY PATIENT: HOLDEN MATA UNIT: [id number] ADM DATE: 01/09/19 AGE: 48 : 74 SEX: F ROOM/BED: D.[facility]8 AUTHOR: BRETT OLVERA PHYSICIAN: REFERRING PHYSICIAN: CASSANDRA DARLING MD DATE OF SERVICE: 01/11/19 Discharge Plan Patient Name: HOLDEN MATA [facility] [facility] 1970 Planned Disposition: Home Anticipated Discharge Date: 01/10/19 Discharge Date: 01/10/2019 Expected LOS: 1 Initial Reviewer: [email or web address] Initial Review Date: 01/09/2019 Generated: 01/11/19 10:29 am Coverage Notice Reviewer: [email or web address] - Ann Marie Stein Notice Issued Date-Time: 01/10/2019 14:16 Notice Type: Medicare Outpatient Observation Notice Notice Delivered To: Patient Relationship to Patient: Self Dietetics Director Name: Delivery Method: HAND - Hand Delivered Melva Days: Prior Verbal Notification: Recipient Understood Notice: Yes Recipient Signature: Yes Med Rec Note Co-signed by Attending: Coverage Notice Comment: Last DP export: 01/10/19 1:52 pm Patient Name: HOLDEN MATA Page [phone] at 0929 All edits/amendments must be made on the electronic document DICTATION DATE: 01/11/19928 RADIOLOGY PHYSICIAN ASSISTANT: RAFA 01/11/19928 RPT#: [id number] DC DATE:01/10/19 STATUS: DIS IN [facility] [address] [place] [address] END OF REPORT
== END 2019-01-10 16:17 | disposition home or self-care (01) ==
LOC: D.ER 12:47 → D.OPS 12:47 → D.ER 16:06 → D.EDHOLD 16:06 → D.M2 16:06 → D.EDHOLD 16:10 → D.M2 16:10 → D.OPS 01-10 16:17 → D.M2 01-10 16:17
PROVIDERS: Family Medicine; ATTEND Emergency Medicine
DX: I25.110 Atherosclerotic heart disease of native coronary artery with unstable angina pectoris (principal); I25.2 Old myocardial infarction; Z82.49 Family history of ischemic heart disease and other diseases of the circulatory system; I10 Essential (primary) hypertension; Z87.820 Personal history of traumatic brain injury; F17.200 Nicotine dependence, unspecified, uncomplicated; F41.9 Anxiety disorder, unspecified; Z79.891 Long term (current) use of opiate analgesic; Z79.899 Other long term (current) drug therapy; Z88.1 Allergy status to other antibiotic agents; Z88.2 Allergy status to sulfonamides; Z88.7 Allergy status to serum and vaccine; Z01.812 Encounter for preprocedural laboratory examination

== ENCOUNTER 2019-01-26 12:08 | Emergency (ER) | payer MEDICARE, MEDICAID ==
[~2019-01-26] VITALS: Ht 144.8 cm; Wt 81.8 kg
[~2019-01-26 12:08] MED LIST changes: +ASPIRIN325 MG PO; +ISOSORBIDE MONO30 M1 PO
[2019-01-26 12:11] VITALS: Ht 144.8 cm; Wt 81.8 kg
[2019-01-26] MEDS ORDERED: PREDNISONE10 MG PO (13:23)
[2019-01-26] MEDS ORDERED: NAPROSYN500 MG PO (13:23)
[2019-01-26 13:41] VITALS: BP 169/85
== END 2019-01-26 13:41 | disposition home or self-care (01) ==
LOC: D.ER 12:08
DX: M25.461 Effusion, right knee (principal)

== ENCOUNTER → 2019-01-28 12:48 | Outpatient (CLI) | payer MEDICARE, MEDICAID ==
[2019-01-26 12:11] VITALS: BMI 39.0
[~2019-01-28 12:48] MED LIST changes: +NAPROSYN500 MG PO; +PREDNISONE10 MG PO
[2019-01-28 14:20] LABS: MACROPHAGES BF 77 %; NEUT - BF 12 %
== END | disposition home or self-care (01) ==
LOC: D.LABREF 12:48
PROVIDERS: ATTEND Orthopaedic Surgery
DX: M25.561 Pain in right knee (principal); R22.41 Localized swelling, mass and lump, right lower limb

== ENCOUNTER → 2019-02-14 09:13 | Outpatient (CLI) | payer MEDICARE, MEDICAID ==
[~2019-02-14 09:13] MED LIST changes: +CYCLOBENZAPRINE10 MG PO; +EC-NAPROSYN500 MG PO; +MACROBID100 MG PO
== END | disposition home or self-care (01) ==
LOC: D.MRI 09:13
DX: M25.561 Pain in right knee (principal)

== ENCOUNTER 2019-03-03 20:51 | Emergency (ER) | payer MEDICARE, MEDICAID ==
[~2019-03-03] VITALS: Ht 144.8 cm; Wt 90.7 kg
[~2019-03-03 20:51] MED LIST changes: -CYCLOBENZAPRINE10 MG PO; -EC-NAPROSYN500 MG PO; -MACROBID100 MG PO
[2019-03-03 20:58] VITALS: Ht 144.8 cm; Wt 90.7 kg
[2019-03-03] MEDS ORDERED: CYCLOBENZAPRINE10 MG PO (21:54)
[2019-03-03] MEDS ORDERED: EC-NAPROSYN500 MG PO (21:54)
[2019-03-03 22:17] VITALS: BP 211/113
== END 2019-03-03 22:18 | disposition home or self-care (01) ==
LOC: D.ER 20:51
DX: S39.012A Strain of muscle, fascia and tendon of lower back, initial encounter (principal); W18.30XA Fall on same level, unspecified, initial encounter; Y93.H2 Activity, gardening and landscaping; Y92.017 Garden or yard in single-family (private) house as the place of occurrence of the external cause; M54.32 Sciatica, left side

== ENCOUNTER 2019-04-06 20:29 | Emergency (ER) | payer MEDICARE, MEDICAID ==
[~2019-04-06 20:29] MED LIST changes: +CYCLOBENZAPRINE10 MG PO; +EC-NAPROSYN500 MG PO
[2019-04-06 20:54] VITALS: BMI 44.2
[2019-04-06 21:19] LABS: APPEARANCE CLEAR (CLEAR); COLOR YELLOW (YELLOW)
[2019-04-06 21:20] LABS: BACTERIA FEW /hpf (NONE SEEN); BILIRUBIN NEGATIVE (NEGATIVE); EPITHELIAL CELLS 0-5 /hpf (0-5); GLUCOSE NEGATIVE (NEGATIVE); KETONE NEGATIVE (NEGATIVE); NITRITE POSITIVE (NEGATIVE); PROTEIN NEGATIVE (NEGATIVE); RED CELLS - URINE 0-5 /hpf (0-5); UROBILINOGEN NORMAL (NORMAL)
[2019-04-07] MEDS ORDERED: MACROBID100 MG PO (00:30)
[2019-04-07 01:27] VITALS: BP 211/106
== END 2019-04-07 01:27 | disposition home or self-care (01) ==
LOC: D.ER 20:29
PROVIDERS: Family Medicine
DX: M79.672 Pain in left foot (principal); M79.671 Pain in right foot; N39.0 Urinary tract infection, site not specified

== ENCOUNTER 2019-08-30 19:10 | Emergency (ER) | payer MEDICARE, MEDICAID ==
[~2019-08-30] VITALS: Ht 144.8 cm; Wt 103.6 kg
[~2019-08-30 19:10] MED LIST changes: +MACROBID100 MG PO
[2019-08-30 19:24] VITALS: Ht 144.8 cm; Wt 103.6 kg
[2019-08-30 20:18] LABS: APPEARANCE CLEAR (CLEAR); BILIRUBIN NEGATIVE (NEGATIVE); COLOR YELLOW (YELLOW); EPITHELIAL CELLS OCC /hpf (0-5); GLUCOSE NEGATIVE (NEGATIVE); KETONE NEGATIVE (NEGATIVE); NITRITE NEGATIVE (NEGATIVE); PROTEIN NEGATIVE (NEGATIVE); SPECIFIC GRAVITY 1.015 (1.005-1.020); UROBILINOGEN NORMAL (NORMAL); WHITE CELLS - URINE 0-5 /hpf (NEGATIVE)
[2019-08-30 20:19] LABS: BACTERIA FEW /hpf (NEGATIVE)
[2019-08-30 20:41] LABS: BASOPHILS 0.3 % (0-2); EOSINOPHILS 2.1 % (0-7); HEMATOCRIT 41.9 % (36.0-48.0); HEMOGLOBIN 13.7 g/dL (12-16); LYMPHOCYTES 21.5 % (15-50); MCH 27.4 pg (26.0-34.0); MCHC 32.7 g/dL (31.0-37.0); MCV 83.8 fL (80.0-100.0); MEAN PLATELET VOLUME 11.6 fL (7.4-10.4); MONOCYTES 8.6 % (2-11); NEUTROPHILS 67.5 % (40-80); PLATELET COUNT 211 10x3/uL (130-400); WBC 7.5 10x3/uL (4.8-10.8)
[2019-08-30 21:00] LABS: ANION GAP 11.9 mmol/L (8-16); CARBON DIOXIDE 28.4 mmol/L (21.0-32.0); CREATININE - SERUM 0.9 mg/dL (0.6-1.3); POTASSIUM - SERUM 3.3 mmol/L (3.5-5.1)
[2019-08-30 21:06] LABS: ALBUMIN 3.4 g/dL (3.4-5.0); BILIRUBIN - TOTAL 0.33 mg/dL (0.2-1.3); MAGNESIUM - SERUM 1.9 mg/dL (1.8-2.4); PROTEIN - SERUM 7.6 g/dL (6.4-8.2)
[2019-08-30 21:55] VITALS: BP 175/105
== END 2019-08-30 21:55 | disposition home or self-care (01) ==
LOC: D.ER 19:10
PROVIDERS: Emergency Medicine
DX: R11.2 Nausea with vomiting, unspecified (principal); R50.9 Fever, unspecified; E87.6 Hypokalemia

== ENCOUNTER 2020-03-03 13:55 | Emergency (ER) | payer MEDICARE, MEDICAID ==
[~2020-03-03] VITALS: Ht 144.8 cm; Wt 100.0 kg
[2020-03-03 14:05] VITALS: BP 160/107; Ht 144.8 cm; Wt 100.0 kg
[2020-03-03] MEDS ORDERED: HYDROCODON-ACE1 EA10 PO (14:08)
== END 2020-03-03 14:40 | disposition home or self-care (01) ==
LOC: D.ER 13:55
DX: G89.29 Other chronic pain (principal); M25.561 Pain in right knee; M65.30 Trigger finger, unspecified finger; I10 Essential (primary) hypertension; J44.9 Chronic obstructive pulmonary disease, unspecified; R51 Headache; M79.642 Pain in left hand

== ENCOUNTER 2020-03-06 14:17 | Emergency (ER) | payer MEDICARE, MEDICAID ==
[~2020-03-06] VITALS: Ht 144.8 cm; Wt 90.9 kg
[~2020-03-06 14:17] MED LIST changes: +HYDROCODON-ACE1 EA10 PO
[2020-03-06 14:26] VITALS: Ht 144.8 cm; Wt 90.9 kg
[2020-03-06 16:16] VITALS: BP 142/87
== END 2020-03-06 16:16 | disposition home or self-care (01) ==
LOC: D.ER 14:17
DX: M25.561 Pain in right knee (principal); I10 Essential (primary) hypertension; J44.9 Chronic obstructive pulmonary disease, unspecified; G89.29 Other chronic pain

== ENCOUNTER 2020-05-06 18:42 | Inpatient (IN) | payer MEDICARE, MEDICAID ==
[~2020-05-06] VITALS: Ht 144.8 cm; Wt 103.9 kg
--- NOTE | ~2020-05-06 | HEMODYNAMI ---
PATIENT:HOLDEN MATA MEDICAL RECORD: [id number] : 74 LOCATION:[address] ADMISSION DATE: 05/06/20 Generatedon:05/07/202013:37 Patient name: HOLDEN MATA Patient #: [id number] : 1970 Date of study: 05/07/2020 Page: Of Hemodynamic Procedure Report Patient Data Patient Demographics Procedure consent was obtained First Name: HOLDEN Gender: Female Last Name: ESPERANZA : 1970 Middle Initial: A Age: 50 year(s) Patient #: [id number] Race: Unknown SSN: [id number] Additional ID: [id number] Contact details Address: [address] [place] [address] ROAD State: [place] City: [place] Zip code: [address] Past Medical History Allergies Allergen Reaction Date Comments Reported Other 01/10/2019 keflex, haldol, stadol allergy Sulfa drugs 01/10/2019 Other 05/07/2020 HALOPERIDOL allergy LACTATE/SULFA/CEPHALEXIN MONOHYDRATE/BUTORPHANOL TARTRATE/ HALOPERIDOL Admission Admission Data Admission Date: 05/06/2020 Admission Time: 20:47 Arrival Date: 05/07/2020 Arrival Time: 0:00 Room #: 2124 Insurance Payor: Medicaid, Medicare [facility] #: [id number] Height (in.): 56.69 BSA: 1.89 (m2) Height (cm.): 144 BMI: 49.67 (kg/m2) Weight (lbs.): 227.08 Weight (kg.): 103 Lab Results Lab Result Date: 05/07/2020 Lab Result Time: 0:00 Biochemistry Name Units Result Min Max BUN mg/dl 13 --(--*-)-- 7 18 Creatinine mg/dl 1 --(--*-)-- 0.6 1.3 eGFR ml/min 63 *-(----)-- 90 120 NONAFRICAN Procedure Procedure Types Cath Procedure Diagnostic Procedure [facility] w/Coronaries Sedation Charges Moderate Sedation up to 15 minutes Procedure Description Procedure Date Procedure Date: 05/07/2020 Procedure Start Time: 13:24 Procedure End Time: 13:35 Procedure Staff Name Function Narenrda Sainz MD Performing Physician Victorina Sapp RT Monitor Radhika Hartman RN Nurse Deborah Bradley RT Scrub Procedure Data Cath Procedure Fluoroscopy Diagnostic fluoroscopy Total fluoroscopy Time: 1.3 time: 1.3 min min Diagnostic fluoroscopy Total fluoroscopy dose: 568 dose: 568 mGy mGy Contrast Material Contrast Material Type Amount (ml) Isovue 300 60 Entry Location Entry Primary Successful Side Size Upsize Upsize Entry Closure Succes sful Closure Location (Fr) 1 (Fr) 2 (Fr) Remarks Device Remarks Femoral Left 5 Fr Exoseal artery Estimated blood loss: 5 ml Diagnostic catheters Device Type Used For End Catheter Placement MULTIPACK JL 4.0 5Fr Left Coronary catheter Angiography MULTIPACK 3DRC 5Fr Right Coronary catheter Angiography MULTIPACK Pigtail 5 Fr LV Angiography catheter Procedure Complications No complications Procedure Medications Medication Administration Route Dosage 0.9% NaCl I.V. 100 ml/hr Oxygen etCO2 Nasal cannula 2 l/min Lidocaine 2% added to field 20 Heparin Flush Bag added to field 2 bags (1000units/500ml NS) Versed I.V. 2 mg Fentanyl I.V. 50 mcg Lopressor I.V. 5 mg Hemodynamics Rest BSA: 1.89 (m2) O2 Consumption: Estimated: 209.36 (ml/min) O2 Consumption indexed : Estimated:110.77 (ml/min/m) Heart Rate: 102 (bpm) Pressure Samples Time Site Value (mmHg) Purpose Heart Use Rate(bpm) 13:30 LV 170/14,18 Snapshot 90 Gradients Valve Time Site Site Mean SEP/DFP Peak To Heart Use 1 2 (mmHg) (sec/min) Peak Rate (mmHg) (bpm) Aortic 13:30 LV AO 89 Snapshots Pre Cath Intra NCS Post Cath Vital Signs Time Heart Resp SPO2 etCO2 NIBP (mmHg) Rhythm Pain Sedation Rate (ipm) (%) (mmHg) Status Level (bpm) 12:59:53 102 13 96 44.1 173/108(129) NSR 0 (11) 10(A) , No pain 13:08:37 104 11 92 41.1 165/106(147) NSR 0 (11) 10(A) , No pain 13:13:04 103 13 93 38.9 163/97(140) NSR 0 (11) 10(A) , No pain 13:18:03 103 14 93 28.4 Measuring NSR 0 (11) 10(A) , No pain 13:18:46 103 12 93 34.4 154/104(136) NSR 0 (11) 10(A) , No pain 13:23:45 104 14 93 33.6 Measuring NSR 0 (11) 9(A) , No pain 13:24:23 105 10 93 31.4 158/111(131) NSR 0 (11) 9(A) , No pain 13:28:46 106 13 93 17.9 156/104(141) NSR 0 (11) 10(A) , No pain 13:33:45 87 10 94 36.6 Measuring NSR 0 (11) 10(A) , No pain 13:34:28 86 13 96 28.4 169/99(128) NSR 0 (11) 10(A) , No pain Medications Time Medication Route Dose Verified Delivered Reason Notes Effe ctiveness by by 12:58:27 0.9% NaCl I.V. 100 Narendra Radhika used for ml/hr Alistair Devan procedure RN 12:58:35 Oxygen etCO2 2 Naerndra Radhika used for Nasal l/min Alistair Devan procedure cannula MD STEPHENS 12:58:41 Lidocaine 2% added 20ml Narendra Mackey used for to vial Alistair Alistair procedure field MD BECKHAM 12:58:45 Heparin Flush added 2 Narendra Narendra used for Bag to bags Alistair Alistair procedure (1000units/500ml field MD BECKHAM NS) 13:20:21 Versed I.V. 2 mg Narendra Radhika for AlistairJuan Jose Hartman sedation MD STEPHENS 13:20:32 Fentanyl I.V. 50 Narendra Radhika for mcg AlistairJuan Jose Hartman sedation RN 13:30:08 Lopressor I.V. 5 mg Narendra Radhika Per [facility] Juan Jose Hartman physician box blank machine feeder Log Time Note 12:29:00 Arrival Date: 05/07/2020 12:00:00 AM 12:29:14 Insurance Payor : Medicare, Medicaid 12:29:28 Patient Height : 56.69 inches 12:29:30 Patient Weight : 227.08 lbs 12::22 Lab Result : eGFR NONAFRICAN 63 ml/min 12:: Lab Result : Creatinine 1 mg/dl 12:: Lab Result : BUN 13 mg/dl 12:35:28 Procedure Status Urgent Heart Cath (IP). 12:35:30 Radhika Hartman RN sent for patient. Start room use. 12:35:45 Time tracking: Regular hours (M-F 7:00 - 5:00) 12:35:51 Plan of Care:Hemodynamics will remain stable., Cardiac rhythm will remain stable., Comfort level will be maintained., Respiratory function will remain adequate., Patient/ family verbilizes understanding of procedure., Procedure tolerated without complication., Recovers from procedure without complications.. 12:36:59 Patient received from Med II to CCL 1 Alert and oriented. Tansferred to table in Supine position. 12:40:01 H&P Date Dictated: 05/06/2020 Within 30 days and on chart.. 12:40:03 Pre-procedure instructions explained to patient. 12:40:05 Family unavailable. 12:40:07 Patient NPO since Midnight. 12:55:03 Patient received from Med II to CCL 1 Alert and oriented. Tansferred to table in Supine position. 12:57:35 PT ARRIVED TO CL W/ SPO2 88-89% ON RA. 2LNC APPLIED W/ SPO2 93%. MD AWARE. 12:58:13 Informed consent obtained and on chart 12:58:18 Vital chart was started 12:58:27 0.9% NaCl 100 ml/hr I.V. was administered by Radhika Hartman RN; used for procedure; Verbal order read back and verified. 12:58:35 Oxygen 2 l/min etCO2 Nasal cannula was administered by Radhika Hartman RN ; used for procedure; Verbal order read back and verified. 12:58:41 Lidocaine 2% 20ml vial added to field was administered by Narendra Sainz MD; used for procedure; Verbal order read back and verified. 12:58:45 Heparin Flush Bag (1000units/500ml NS) 2 bags added to field was administered by Narendra Sainz MD; used for procedure; Verbal order read back and verified. 13:03:41 Warm blankets applied, and esa hugger turned on for patient comfort. 13:03:42 Correct patient and procedure confirmed by team. 13:03:43 ECG and BP/O2 sat monitors applied to patient. 13:03:45 Baseline sample Acquired. 13:03:53 Rhythm: sinus tachycardia 13:03:55 Full Disclosure recording started 13:03:56 - 13:03:57 Pre-op teaching completed and patient verbalized understanding. 13:05:15 Patient allergic to Other allergyHALOPERIDOL LACTATE/SULFA/CEPHALEXIN MONOHYDRATE/BUTORPHANOL TARTRATE/ HALOPERIDOL 13:05:19 Is the patient allergic to Iodine/contrast media? No. 13:05:23 Was the patient premedicated? Yes 13:05:34 Is patient on blood thinner?No 13:05:38 Patient diabetic? No. 13:15:42 Patient not . Patient has had hysterectomy. 13:15:44 ----Pre-sedation anethsthesia assessment.---- 13:15:46 Snore? Yes 13:15:50 Sleep apnea? No 13:15:55 Opens mouth fully? Yes 13:15:59 Sticks out tongue? Yes 13:16:03 Airway obstruction? Yes ?COPD 13:16:07 Dentures? No ? 13:16:17 Pre procedure: left dorsailis pedis pulse 1+ Palpable, but thready & weak; easily obliterated 13:16:32 IV patent on arrival in left antecubital with 0.9% NaCl at KVO. 13:16:52 Lab results completed and on chart. 13:17:44 Stress Test: no; N/A ? 13:17:50 Left groin area was prepped with chlora-prep and draped in sterile fashion 13:17:55 Alarms reviewed by RBelle N. 13:17:56 Sharps counted by scrub and verified by R.N. 13:18:02 Use device set Femoral Dx 13:18:04 ACIST Syringe (54930) opened to sterile field. 13:18:05 Bag Decanter (2002S) opened to sterile field. 13:18:06 Medline Cath Pack ([id number]) opened to sterile field. 13:18:08 ACIST Hand Control (50643) opened to sterile field. 13:18:09 ACIST Manifold (31013) opened to sterile field. 13:18:10 DIAGNOSTIC Multipack 5Fr catheter set (VZ2104) opened to sterile field. 13:18:11 Tegaderm 4 x 4 (1626W) opened to sterile field. 13:18:14 SHEATH 5FR [place] (VPL008) opened to sterile field. 13:18:14 EMERALD Guide Wire (419-199) opened to sterile field. 13:19:26 Physician arrived 13::27 --------ALL STOP TIME OUT------ 13:19:28 Final Timeout: patient, procedure, and site verified with staff and physician. All members of the team are in agreement. 13:19:31 Left groin site verified by team. 13:19:37 Fire Safety Assessment: A--An alcohol-based skin anteseptic being used preoperatively., C--Open oxygen or nitrous oxide is being used., D--An ESU, laser, or fiber-optic light is being used. 13:19:42 Physical assessment completed. ASA score P 2 - A patient with mild systemic disease as per Narendra Sainz MD. 13:19:56 2) 60-89 Mildly reduced kidney function, and other findings (as for stage 1) point to kidney disease. 13:20:03 Maximum allowable contrast dose (3.7 X eGFR X 0.75)174 ml. 13:20:11 Sedation plan: IV Moderate Sedation Medication:Versed, Fentanyl 13:20:21 Versed 2 mg I.V. was administered by Radhika Hartman RN; for sedation; Verbal order read back and verified. 13:20:32 Fentanyl 50 mcg I.V. was administered by Radhika aHrtman RN; for sedation ; Verbal order read back and verified. 13:22:56 Zero performed for pressure channel P1 13:24:28 Procedure started. 13:24:35 Local anesthetic to left femerol artery with Lidocaine 2% by Narendra Sainz MD.INITIAL ACCESS ONLY 13:26:26 A 5 Fr sheath was inserted into the Left Femoral artery 13:26:43 A MULTIPACK JL 4.0 5Fr catheter was advanced over the wire and used for Left Coronary Angiography. 13:27:27 LCA angiography performed. 13:27:35 Injector settings: Ml/sec: 3, Volume: 6, 13:28:10 Catheter removed. 13:28:20 A MULTIPACK 3DRC 5Fr catheter was advanced over the wire and used for Right Coronary Angiography. 13:29:12 RCA angiography performed. 13:29:17 Injector settings: Ml/sec: 3, Volume: 6, 13:29:22 Catheter removed. 13:29:29 A MULTIPACK Pigtail 5 Fr catheter was advanced over the wire and used for LV Angiography. 13:30:08 Lopressor 5 mg I.V. was administered by Radhika Hartman RN; Per physician ; Verbal order read back and verified. 13:30:16 LV gram done using ORR 13:30:22 Injector settings: Ml/sec: 5, Volume: 15, 13:30:54 EF : 55 % 13:30:57 LV hemodynamics recorded. 13:32:56 Catheter removed. 13:33:08 EXOSEAL 5Fr (EX500) opened to sterile field. 13:33:33 Sheath removed intact; hemostasis achieved with Exoseal to the Left Femoral artery. 13:33:37 Procedure ended.(Physican Out) 13:33:50 Fluoroscopy time 01.30 minutes. 13:33:56 Flurop Dose total: 568 13:33:56 Fluoroscopy dose: 568 mGy 13:34:03 Dose Area Product 07495 mGy/cm. 13:34:09 Contrast amount:Isovue 300 60ml. 13:34:15 Maximum allowable dose exceeded? No. 13:34:16 Sharps counted by scrub and verified by R.N. 13:34:18 Insertion/operative site no bleeding no hematoma. 13:34:24 Post-op/insertion site Left Femoral artery dressed using a 4 x 4 and Tegaderm. 13:34:33 Post-procedure physical assessment completed. ASA score P 2 - A patient with mild systemic disease as per Narendra Sainz MD. 13:34:37 Post procedure rhythm: unchanged. 13:34:42 Estimated blood loss: 5 ml 13:34:44 Post procedure instruction explained to patient.Patient verbalizes understanding. 13:34:46 Patient needs reinforcement of post procedure teaching. 13:35:17 Procedure type changed to Cath procedure, Diagnostic procedure, LHC, LH C w/Coronaries, Sedation Charges, Moderate Sedation up to 15 minutes 13:35:19 Procedure and supply charges have been captured, reviewed, submitted an d are correct. 13:35:28 Procedure Complication : No complications 13:35:32 Vital chart was stopped 13:35:35 [facility] Findings: mild to moderate CAD (<70%) 13:35:39 Operative report dictated upon procedure completion. 13:35:40 See physician's report for complete and final results. 13:35:42 Report given to [facility]. 13:35:47 Patient transfered to [facility] with Bed. 13:35:50 Procedure ended. 13:35:50 Full Disclosure recording stopped 13:36:12 End room use (Document Last) Device Usage Item Name Manufacture Quantity Catalog Hospital Part Current Minimal L ot# / Number Charge Number Stock Stock Serial# Code ACIST Acist 1 82817 882935 253452 883632 20 Syringe Medical (57306) Systems Inc Bag Microtek 1 423380 16911 133137 5 Decanter Medical Inc. () Medline Medline 1 [id number] 944062 18888 673473 5 Cath Pack ([id number]) ACIST Hand Acist 1 78024 467730 280928 848362 5 Control Medical (84934) Systems Inc ACIST Acist 1 68367 988391 138290 274867 5 Manifold Medical (81119) Systems Inc DIAGNOSTIC Cardinal 1 [id number] 811183 50263 797994 30 Multipack Health 5Fr catheter set (IB1890) Tegaderm 4 3M 1 1626W 503904 982652 003129 5 x 4 (1626W) SHEATH 5FR Terumo 1 CRG997 553234 529496 671174 5 [place] (PFX477) EMERALD Cardinal 1 502-455 102678 028819 907326 5 Guide Wire Health (502-455) MULTIPACK Cardinal 1 565488 5 JL 4.0 5Fr Health catheter MULTIPACK Cardinal 1 689216 5 3DRC 5Fr Health catheter MULTIPACK Cardinal 1 965612 5 Pigtail 5 Health Fr catheter EXOSEAL 5Fr Cardinal 1 EX500 453044 143724 379948 10 (EX500) Health Signature Audit [place] Stage Time Signature Unsigned Intra-Procedure 05/07/2020 Victorina 1:36:31 PM Sekou RT(R) (CV) Intra-Procedure 05/07/2020 Radhika Hartman 1:37:01 PM RN Intra-Procedure 05/07/2020 Narendra Lewis 1:37:27 PM Juan Jose BECKHAM [facility] [address] [place] [address]
[2020-05-06] MEDS ORDERED: PHENERGAN25 M1 PO (19:04)
[2020-05-06] MEDS ORDERED: AMITRIPTYLINE100 MG PO (19:04)
[2020-05-06 19:05] VITALS: BP 189/119
--- NOTE | 2020-05-06 19:10 | NUR ---
REPORT TO KAT PAPPAS
[2020-05-06 19:24] LABS: UDS - AMPHET NEGATIVE QUAL (NEGATIVE); UDS - BARB NEGATIVE QUAL (NEGATIVE); UDS - BENZO POSITIVE QUAL (NEGATIVE); UDS - COCAINE NEGATIVE QUAL (NEGATIVE); UDS - OPIATE NEGATIVE QUAL (NEGATIVE); UDS - PCP NEGATIVE QUAL (NEGATIVE); UDS - THC NEGATIVE QUAL (NEGATIVE)
[2020-05-06 19:40] LABS: BASOPHILS 0.2 % (0-2); EOSINOPHILS 1.9 % (0-7); HEMOGLOBIN 13.2 g/dL (12-16); IMMATURE GRANULOCYTES 0.2 % (0-5); LYMPHOCYTES 33.5 % (15-50); MCH 27.2 pg (26.0-34.0); MCHC 31.4 g/dL (31.0-37.0); MCV 86.4 fL (80.0-100.0); MEAN PLATELET VOLUME 11.1 fL (7.4-10.4); MONOCYTES 6.4 % (2-11); NEUTROPHILS 57.8 % (40-80); PLATELET COUNT 209 10x3/uL (130-400); RBC 4.86 10x6/uL (4.00-5.40); RDW 15.1 % (11.5-14.5)
[2020-05-06 19:42] LABS: BILIRUBIN NEGATIVE (NEGATIVE); GLUCOSE NEGATIVE (NEGATIVE); KETONE NEGATIVE (NEGATIVE); NITRITE NEGATIVE (NEGATIVE); UROBILINOGEN NORMAL (NORMAL); WHITE CELLS - URINE 25-50 /hpf (NEGATIVE)
[2020-05-06 19:42] LABS: APTT 25.8 SECONDS (22.8-39.4); INR 0.92 (0.85-1.17); PROTIME 12.3 SECONDS (11.6-15.0)
[2020-05-06 19:43] LABS: BACTERIA FEW /hpf (NEGATIVE); EPITHELIAL CELLS 0-5 /hpf (0-5); RED CELLS - URINE NONE SEEN /hpf (0-5)
[2020-05-06 19:45] LABS: ANION GAP 12.1 mmol/L (8-16); CALCIUM 8.8 mg/dL (8.5-10.1); CARBON DIOXIDE 31.1 mmol/L (21.0-32.0); POTASSIUM - SERUM 4.2 mmol/L (3.5-5.1)
[2020-05-06] MEDS ORDERED: MACROBID100 MG PO (19:48)
[2020-05-06 20:00] VITALS: BP 129/99
[2020-05-06 20:07] LABS: ALBUMIN 3.1 g/dL (3.4-5.0); BILIRUBIN - TOTAL 0.18 mg/dL (0.2-1.3); C-REACTIVE PROTEIN 4.7 mg/dL (0.0-0.9); MAGNESIUM - SERUM 2.1 mg/dL (1.8-2.4); PROTEIN - SERUM 6.7 g/dL (6.4-8.2); THYROID STIMULATING HORMONE 4.04 uIU/mL (0.36-3.74)
[2020-05-06 20:10] LABS: TROPONIN-I 0.214 ng/mL (0.000-0.060)
--- NOTE | 2020-05-06 20:42 | NUR ---
PT ASSISTED TO THE REST ROOM.
[2020-05-06 23:21] VITALS: BP 139/89
--- NOTE | 2020-05-07 03:54 | NUR ---
I have reviewed this patient and I concur with the Shift Assessment completed by the Licensed Practical Nurse today this shift.
[2020-05-07 04:00] VITALS: BP 114/81
[2020-05-07 08:31] VITALS: BP 169/101
[2020-05-07 10:03] VITALS: Ht 144.8 cm; Wt 103.9 kg
[2020-05-07 11:47] LABS: BASOPHILS 0.3 % (0-2); EOSINOPHILS 2.6 % (0-7); HEMATOCRIT 40.3 % (36.0-48.0); HEMOGLOBIN 12.5 g/dL (12-16); IMMATURE GRANULOCYTES 0.2 % (0-5); LYMPHOCYTES 31.4 % (15-50); MCH 26.9 pg (26.0-34.0); MCV 86.9 fL (80.0-100.0); MEAN PLATELET VOLUME 11.6 fL (7.4-10.4); MONOCYTES 5.7 % (2-11); NEUTROPHILS 59.8 % (40-80); PLATELET COUNT 225 10x3/uL (130-400); RBC 4.64 10x6/uL (4.00-5.40); RDW 15.5 % (11.5-14.5)
[2020-05-07 11:57] LABS: CALCIUM 8.6 mg/dL (8.5-10.1); CARBON DIOXIDE 27.2 mmol/L (21.0-32.0); CHLORIDE - SERUM 102 mmol/L (98-107); CHOLESTEROL, TOTAL 265 mg/dL (0-200); HDL CHOLESTEROL 33 mg/dL (32-96); POTASSIUM - SERUM 3.9 mmol/L (3.5-5.1); SODIUM 142 mmol/L (136-145); TRIGLYCERIDE 404 mg/dL (30-200); eGFR NON AFRICAN AMERICAN 42 mL/min (90-120)
[2020-05-07 11:58] LABS: ALT (SGPT) 177 U/L (10-68); CALC OSMOLALITY 290 mosm/kg (275-300); CREATININE - SERUM 1.4 mg/dL (0.6-1.3); GLUCOSE 202 mg/dL (74-106); UREA NITROGEN 19 mg/dL (7-18)
[2020-05-07 12:22] LABS: WBC 5.8 10x3/uL (4.8-10.8)
[2020-05-07 12:24] VITALS: BP 145/103
[2020-05-07 20:00] VITALS: BP 131/83
--- NOTE | 2020-05-07 20:40 | NUR ---
IV TO LEFT AC OUT, TIP INTACT. REISTED IV TO RIGHT HAND. 22 GUAGE, PT TOLERATED WELL.
[2020-05-08] VITALS: BP 157/81
[2020-05-08 04:00] VITALS: BP 162/82
--- NOTE | 2020-05-08 08:26 | CN ---
PATIENT NAME:HOLDEN MATA MEDICAL RECORD: [id number] : 74 LOCATION:. D.2124 ADMIT DATE: 05/07/20 ACCOUNT: [id number] CONSULTING PHYSICIAN: ERINN MAN MD REFERRING PHYSICIAN: MONIQUE LUNA MD DATE OF CONSULTATION: 05/06/2020 HISTORY OF PRESENT ILLNESS: A 50-year-old female has history of cerebrovascular disease status post CVA. She has a history of early atherosclerotic plaquing with diagonal disaseae approximately 2 years ago, admitted with symptoms of malaise, fatigue, chest pain, leg weakness, arm pain going on the past 2 weeks, pain is worse with inspiration; however, troponin was found to be elevated consistent with NSTEMI. We are asked to see her concerning her cardiovascular status. PAST MEDICAL HISTORY: Includes; 1. History of hypertension. 2. Hyperlipidemia. 3. Coronary artery disease with early atherosclerotic plaquing via previous angiography. 4. Cerebrovascular disease status post cerebrovascular accident. MEDICATIONS: Include Lyrica 75 at bedtime, Harrison 10/325 one every 4 hours p.r.n., aspirin 325 every day, Elavil 100 at bedtime, Xanax 1 mg t.i.d., amlodipine 5 b.i.d., Phenergan 25 every day. SOCIAL HISTORY: Nonsmoker, nondrinker. Easily able to care of all her ADLs, has been under more stress with her being sick. REVIEW OF SYSTEMS: The patient reports easy bruising but reports no swollen glands. The patient reports no fever, no night sweats, no significant weight gain, no significant weight loss. No significant exercise tolerance. The patient reports no dry eyes, no irritation, no vision change. Patient reports no difficulty hearing and no ear pain. Patient reports no frequent nose bleeds or nose and sinus problems. Patient reports on arm pain on exertion. No shortness of breath while lying down. No history of heart murmur. Patient reports no cough, no wheezing or coughing up blood. Patient reports no abdominal pain, no vomiting. Normal appetite. No diarrhea and not vomiting blood. No nausea and no constipation. Patient reports no incontinence. No difficulty urinating. No hematuria. No increased frequency. Patient reports no muscle aches. No weakness, no arthralgias, no back pain. No swelling of the extremities. Patient reports no abnormal mole, no jaundice, no rashes. Reports no loss of consciousness. No weakness and no numbness. No seizures, dizziness, or headaches. The patient reports no depression, no sleep disturbance, feeling safe in a relationship and no alcohol abuse. Patient reports on fatigue. Reports no runny nose or sinus pressure. No itching, no hives, and no frequent sneezing. PHYSICAL EXAMINATION: GENERAL: Pleasant female in no acute distress, appears stated age. VITAL SIGNS: Blood pressure 168/101, pulse 108 and regular. HEENT: Normocephalic, atraumatic. NECK: No JVD or bruit. HEART: Regular. Questionable S4 gallop. LUNGS: Good air excursion. Few expiratory wheezes. CONSULT REPORT [id number] HOLDEN MATA ABDOMEN: Soft, nontender. EXTREMITIES: Pulses 2+. No edema. IMPRESSION: Acute coronary syndrome with history of disease in the past, elevated troponin consistent with non-ST elevation myocardial infarction. PLAN: For angiography, intervention based on the above. TRANSINT:[id number] Voice Confirmation ID: [id number] DOCUMENT ID: [id number] ERINN MAN MD at 0826 CC: [id number] DICTATION DATE: 05/07/20 0849 REFRIGERATOR CRATER: 05/07/20 1150 ADM IN [place] [id number] [place] [address]
--- NOTE | 2020-05-08 08:26 | OP ---
PATIENT NAME: HOLDEN MATA MEDICAL RECORD: [id number] :74 LOCATION:D.M2 D.2124 ADMISSION DATE:05/07/20 SURGEON: ERINN MAN MD DATE OF OPERATION: 05/07/2020 PROCEDURE: Left heart catheterization, selective coronary angiography, right femoral artery approach. CATHETERS: A 5-Yoruba sheath, 5/4 left and right Elizabeth, 5/4 pig. The procedure was well tolerated. The patient returned to the navarro, sheath removed. ExoSeal device placed. FINDINGS: Left ventriculography in 30-degree ORR view: Normal wall motion and normal systolic function. CORONARY ANATOMY: LEFT MAIN: Left main is free of disease. LAD: Free of disease in the diagonal system. CIRCUMFLEX: Free of disease in the marginal system. RIGHT CORONARY ARTERY: Dominant artery, gives rise to PDA, free of disease. IMPRESSION: Normal left ventricular systolic function, normal coronary anatomy. TRANSINT:[id number] Voice Confirmation ID: [id number] DOCUMENT ID: [id number] ERINN MAN MD at 0826 CC: [id number] DICTATION DATE: 05/07/20 1337 DRAWING PRESS OPERATOR: 05/07/20 1526 ADM IN [place] [id number] [place] [address]
[2020-05-08 09:26] VITALS: BP 127/96
--- NOTE | 2020-05-08 15:55 | NUR ---
IN THE MIDDLE OF REMOVING THE PIV, THE SISTER BUSTED THROUGH THE DOOR STATING THAT SHE WAS "PISSED OFF BECAUSE THE DISCHARGE SHOULD HAVE BEEN DONE HOURS AGO AND TEA BEEN WASTING MY TIME.". SISTER WAS EXTREMELY HOSTILE AND APPREHENSIVE. ATTEMPTED TO REASSURE AND CALM SISTER DOWN WITH NO LUCK. PIV REMOVED WITH CATHETER TIP FULLY INTACT. TELEMETRY REMOVED AND RETURNED. PT SIGNED PROPER DISCHARGE INSTRUCTIONS AND REMOVED ALL VALUABLES FROM THE ROOM.
== END 2020-05-08 15:58 | disposition home or self-care (01) | DRG 281 ==
LOC: D.ER 18:42 → D.M2 20:47 → OBSVTIME 20:47 → D.M2 20:47
PROVIDERS: Family Medicine; Internal Medicine Interventional Cardiology; ADMIT Family Medicine; ATTEND Family Medicine
PROC: B2151ZZ Fluoroscopy of Left Heart using Low Osmolar Contrast (ICD-10-PCS; 2020-05-07)
PROC: 4A023N7 Measurement of Cardiac Sampling and Pressure, Left Heart, Percutaneous Approach (ICD-10-PCS; 2020-05-07)
PROC: B2111ZZ Fluoroscopy of Multiple Coronary Arteries using Low Osmolar Contrast (ICD-10-PCS; principal; 2020-05-07 12:30)
DX: I21.4 Non-ST elevation (NSTEMI) myocardial infarction (principal); N39.0 Urinary tract infection, site not specified; I69.351 Hemiplegia and hemiparesis following cerebral infarction affecting right dominant side; I24.9 Acute ischemic heart disease, unspecified; J44.9 Chronic obstructive pulmonary disease, unspecified; F41.9 Anxiety disorder, unspecified; I10 Essential (primary) hypertension; M17.11 Unilateral primary osteoarthritis, right knee

== ENCOUNTER 2020-06-04 12:01 | Emergency (ER) | payer MEDICARE, MEDICAID ==
[~2020-06-04] VITALS: Ht 144.8 cm; Wt 109.1 kg
[2020-06-04 12:09] VITALS: Ht 144.8 cm; Wt 109.1 kg
[2020-06-04 12:36] LABS: BASOPHILS 0.5 % (0-2); EOSINOPHILS 2.4 % (0-7); HEMATOCRIT 40.3 % (36.0-48.0); IMMATURE GRANULOCYTES 0.3 % (0-5); LYMPHOCYTES 33.7 % (15-50); MCH 27.3 pg (26.0-34.0); MCHC 32.3 g/dL (31.0-37.0); MCV 84.5 fL (80.0-100.0); MEAN PLATELET VOLUME 11.7 fL (7.4-10.4); MONOCYTES 6.5 % (2-11); NEUTROPHILS 56.6 % (40-80); PLATELET COUNT 168 10x3/uL (130-400); RBC 4.77 10x6/uL (4.00-5.40); WBC 7.4 10x3/uL (4.8-10.8)
[2020-06-04 13:51] LABS: BILIRUBIN NEGATIVE (NEGATIVE); GLUCOSE NEGATIVE (NEGATIVE); KETONE NEGATIVE (NEGATIVE); NITRITE NEGATIVE (NEGATIVE); UROBILINOGEN NORMAL (NORMAL)
[2020-06-04 13:52] LABS: BACTERIA FEW /hpf (NEGATIVE); RED CELLS - URINE OCC /hpf (0-5); WHITE CELLS - URINE 0-5 /hpf (NEGATIVE)
[2020-06-04 14:00] LABS: ANION GAP 9.9 mmol/L (8-16); CALCIUM 9.3 mg/dL (8.5-10.1); CARBON DIOXIDE 29.5 mmol/L (21.0-32.0); POTASSIUM - SERUM 4.4 mmol/L (3.5-5.1)
[2020-06-04 14:08] LABS: BILIRUBIN - TOTAL 0.24 mg/dL (0.2-1.3); PROTEIN - SERUM 6.8 g/dL (6.4-8.2)
[2020-06-04] MEDS ORDERED: HYDROCODON-ACE1 EAC2 PO (14:39)
[2020-06-04 15:30] VITALS: BP 168/88
== END 2020-06-04 15:43 | disposition home or self-care (01) ==
LOC: D.ER 12:01
PROVIDERS: Family Medicine
DX: S40.022A Contusion of left upper arm, initial encounter (principal); Z86.73 Personal history of transient ischemic attack (TIA), and cerebral infarction without residual deficits; M79.10 Myalgia, unspecified site; V89.2XXA Person injured in unspecified motor-vehicle accident, traffic, initial encounter; I25.2 Old myocardial infarction

== ENCOUNTER 2021-01-02 20:36 | Emergency (ER) | payer MEDICARE, MEDICAID ==
[~2021-01-02] VITALS: Ht 144.8 cm; Wt 103.6 kg
[~2021-01-02 20:36] MED LIST changes: +HYDROCODON-ACE1 EAC2 PO
[2021-01-02] MEDS ORDERED: LIPITOR40 MG PO (20:41)
[2021-01-02] MEDS ORDERED: XANAX1 MG PO (20:42)
[2021-01-02] MEDS ORDERED: CYCLOBENZAPRINE10 MG PO (20:42)
[2021-01-02 20:44] VITALS: BP 213/110; Ht 144.8 cm; Wt 103.6 kg
[2021-01-02 21:03] LABS: BILIRUBIN NEGATIVE (NEGATIVE); KETONE NEGATIVE (NEGATIVE); NITRITE NEGATIVE (NEGATIVE); UROBILINOGEN NORMAL mg/dL (< 2)
[2021-01-02 21:16] LABS: BASOPHILS 0.1 % (0-2); EOSINOPHILS 1.3 % (0-7); IMMATURE GRANULOCYTES 0.2 % (0-5); LYMPHOCYTE ABS# 3.37 10x3/uL (1.18-3.74); LYMPHOCYTES 40.8 % (15-50); MCH 26.4 pg (26.0-34.0); MCHC 31.7 g/dL (31.0-37.0); MCV 83.3 fL (80.0-100.0); MEAN PLATELET VOLUME 11.4 fL (7.4-10.4); MONOCYTES 6.4 % (2-11); NEUTROPHIL ABS# 4.22 10x3/uL (1.56-6.13); NEUTROPHILS 51.2 % (40-80); PLATELET COUNT 217 10x3/uL (130-400); RBC 4.92 10x6/uL (4.00-5.40); RDW 14.6 % (11.5-14.5); WBC 8.3 10x3/uL (4.8-10.8)
[2021-01-02 21:47] LABS: ALBUMIN 3.1 g/dL (3.4-5.0); ANION GAP 8.3 mmol/L (8-16); BILIRUBIN - TOTAL 0.12 mg/dL (0.2-1.3); CALCIUM 9.6 mg/dL (8.5-10.1); CARBON DIOXIDE 31.5 mmol/L (21.0-32.0); CREATININE - SERUM 1.1 mg/dL (0.6-1.3); POTASSIUM - SERUM 4.8 mmol/L (3.5-5.1); PROTEIN - SERUM 7.2 g/dL (6.4-8.2)
== END 2021-01-03 02:12 | disposition home or self-care (01) ==
LOC: D.ER 20:36
PROVIDERS: Family Medicine
DX: R10.11 Right upper quadrant pain (principal); E66.01 Morbid (severe) obesity due to excess calories; I10 Essential (primary) hypertension; E11.9 Type 2 diabetes mellitus without complications; Z86.73 Personal history of transient ischemic attack (TIA), and cerebral infarction without residual deficits; K21.9 Gastro-esophageal reflux disease without esophagitis